=== PATIENT | male | born 1940 | race Caucasian/White ===

== ENCOUNTER → 2016-04-04 | Outpatient (CLI) | payer BC ==
[~2016-04-04] MED LIST: ASPEC81 PO; CRG3125 PO; CRSUNK PO; GLC500 PO; LISI1TAB3 PO; LRTUNK PO; MULT-506 PO; OXYC1TAB3 PO
[2016-04-04 10:55] LABS: BASO % 0.3 %; BASO ABS # 0.02 K/uL (0-0.2); COMPLETE YES; EOS % 2.5 %; HEMATOCRIT 37.3 % (42-52); IG% 0.4 %; LYMPH % 26.9 %; LYMPH ABS # 2.07 K/uL (1.2-3.4); MEAN CELL VOLUME 96.6 fL (80-100); MEAN CORPUSCULAR HEMOGLOBIN 32.6 pg (25-34); MEAN CORPUSCULAR HGB CONC 33.8 g/dl (32-36); MEAN PLATELET VOLUME 10.7 fL (7.4-10.4); MONO % 7.1 %; NEUT % 62.8 %; PLATELET COUNT 186 K/uL (130-400); RED BLOOD COUNT 3.86 M/uL (4.7-6.1)
[2016-04-04 11:17] LABS: BLOOD UREA NITROGEN 19 mg/dl (7-18); BUN/CREATININE RATIO 15.7 (10-20); C-REACTIVE PROTEIN 0.54 mg/dl (0-0.29); CALCIUM 9.2 mg/dl (8.5-10.1); CARBON DIOXIDE 22 mmol/L (21-32); CHLORIDE 108 mmol/L (98-107); GLUCOSE 125 mg/dl (70-99); POTASSIUM 4.5 mmol/L (3.5-5.1); SODIUM 141 mmol/L (136-145); URIC ACID 7.4 mg/dl (2.6-7.2)
== END | disposition home or self-care (01) ==
LOC: C.LAB 09:58
PROVIDERS: ATTEND Nurse Practitioner Family
DX: M79.89 Other specified soft tissue disorders (principal)

== ENCOUNTER → 2016-08-25 | Outpatient (CLI) | payer BC ==
[~2016-08-25] MED LIST changes: +ASPCH81X PO; +CARV3.122 PO; +METF1000 PO; +OXYC-164 PO; +SIMV10TA2 PO
[2016-08-25 09:33] LABS: BASO % 0.2 %; BASO ABS # 0.02 K/uL (0-0.2); COMPLETE YES; EOS % 2.2 %; HEMATOCRIT 40.3 % (42-52); IG% 0.5 %; LYMPH % 26.4 %; LYMPH ABS # 2.42 K/uL (1.2-3.4); MEAN CELL VOLUME 98.5 fL (80-100); MEAN CORPUSCULAR HGB CONC 34.5 g/dl (32-36); MEAN PLATELET VOLUME 10.7 fL (7.4-10.4); MONO % 8.1 %; NEUT % 62.6 %; PLATELET COUNT 173 K/uL (130-400); RED BLOOD COUNT 4.09 M/uL (4.7-6.1); WHITE BLOOD COUNT 9.17 K/uL (4.8-10.8)
[2016-08-25 09:54] LABS: ALT/SGPT 42 U/L (12-78); BLOOD UREA NITROGEN 17 mg/dl (7-18); BUN/CREATININE RATIO 15.8 (10-20); CALCIUM 9.6 mg/dl (8.5-10.1); CARBON DIOXIDE 25 mmol/L (21-32); CHLORIDE 110 mmol/L (98-107); CHOLESTEROL 172 mg/dl (0-200); GLUCOSE 124 mg/dl (70-99); POTASSIUM 4.4 mmol/L (3.5-5.1); SODIUM 142 mmol/L (136-145); TRIGLYCERIDES 87 mg/dl (0-150); VERY LOW DENSITY LIPOPROT CALC 17 mg/dl
[2016-08-25 09:58] LABS: ALB/GLOB RATIO 1.2 (0.9-2); ALKALINE PHOSPHATASE 60 U/L (45-117); AST/SGOT 23 U/L (15-37); CHOLESTEROL/HDL RATIO 2.6; HDL CHOLESTEROL 65 mg/dl; LDL CHOLESTEROL CALCULATED 90 mg/dl
[2016-08-25 10:07] LABS: ESTIMATED AVERAGE GLUCOSE 97 mg/dl; HA1C FLAG Normal (Normal)
== END | disposition home or self-care (01) ==
LOC: C.LAB 08:37
PROVIDERS: ATTEND Nurse Practitioner Family
DX: I10 Essential (primary) hypertension (principal); E78.00 Pure hypercholesterolemia, unspecified; R73.9 Hyperglycemia, unspecified

== ENCOUNTER → 2016-09-08 | Outpatient (CLI) | payer BC | END | disposition home or self-care (01) | LOC: C.PATHSPEC 11:10 | PROVIDERS: ATTEND Plastic Surgery | DX: C43.9 Malignant melanoma of skin, unspecified (principal) ==

== ENCOUNTER → 2017-02-03 | Day surgery (SDC) | payer BC ==
[2017-01-13 16:07] VITALS: Ht 157.5 cm; Wt 93.6 kg
[~2017-02-03] VITALS: Ht 157.5 cm; Wt 93.6 kg
[~2017-02-03] MED LIST changes: +500ML BSS 0.3ML EPI 1:1000PF IRRIG ONE; +ACETAMINOPHEN 325 MG TAB PO PRN; +AMVISC PLUS 0.8ML SYRINGE INT OCU ONE; -ASPEC81 PO; +ATROPINE SULFATE 0.1 MG/ML 5ML SYR IV PRN; +BSS FLUSH ONE; -CRG3125 PO; -CRSUNK PO; +EpHEDrine SULFATE INJ 50 MG/ML AMP IV PRN; +EpINEphrine INJ 1MG/ML AMP 1 MG/ML AMP ONE; -GLC500 PO; +LACTATED RINGER'S 1000ML 500 ML IV SCH; +LIDOCAINE 3.5% OPH GEL PER APPLICATION CHARGE ONE; +LIDOCAINE HCL 1% MPF 2 ML VIAL ONE; -LISI1TAB3 PO; -LRTUNK PO; +MIDAZOLAM HCL 1 MG/ML 2ML VIAL ONE; +OCUCOAT 1 ML SOLN IO ONE; -OXYC1TAB3 PO; +POVIDONE-IODINE OP SOLN 30 ML BTL ONE; +PROPARACAINE 0.5% OP SOLN PER DROP CHARGE OPL SCH; +TOBRAMYCIN/DEXAMETHASONE OPH OINT PER APPLN CHARGE ONE
[2017-02-03] MEDS: PHENYLEPHRINE HCL 2.5% OP SOLN PER DROP CHARGE OPL SCH ×2 (08:49→08:54)
[2017-02-03] MEDS: TROPICAMIDE 1% OP SOLN PER DROP CHARGE OPL SCH ×2 (08:50→08:55)
[2017-02-03] MEDS: CYCLOPENTOLATE HCL 1% OP SOLN PER DROP CHARGE OPL SCH ×2 (08:51→08:56)
[2017-02-03] MEDS: KETOROLAC 0.5% OP SOLN PER DROP CHARGE OPL SCH ×2 (08:52→08:57)
[2017-02-03] MEDS: GATIFLOXACIN OP SOLN PER DROP CHARGE OPL SCH ×2 (08:53→09:07)
--- NOTE | 2017-02-03 09:18 | History & Physical Bridge - SC ---
H&P Re-Evaluation Bridge Note: I have examined the patient, reviewed the History & Physical and in the interval since the performance of the History & Physical I have noted the following changes of clinical significance: No changes noted
--- NOTE | 2017-02-03 09:51 | Discharge Instructions-SurgCtr ---
Discharge Instructions Date of Service Feb 03, 2017. Visit Reason for Visit: Cataract Left Eye Discharge Discharge Diagnosis / Problem: cataract Discharge Goals Goal(s): Improve function Medications Stopped Medications Name(s): METFORMIN STOPPED 02-01-17 Activity Recommendations Activity Limitations: per Instructions/Follow-up section Anesthesia . Post Anesthesia Instructions: If you have had General Anesthesia or IV Sedation: * Do not drive today. * Resume driving when surgeon permits. * Do not make important decisions or sign legal documents today. * Call surgeon for: 1. Temperature elevations greater than 101 degrees F. 2. Uncontrollable pain. 3. Excessive bleeding. 4. Persistent nausea and vomiting. 5. Medication intolerance (nausea, vomiting or rash). * For nausea and vomiting use only clear liquids such as: tea, soda, bouillon until nausea subsides, then gradually increase diet as tolerated. * If you have any concerns or questions, call your surgeon's office. If physician is unavailable and it is an emergency, call 911 or go to the nearest emergency room. . Diet Recommendations Home Diet: resume previous diet Procedures Procedures Performed: Left Cataract Phacoemulsification With Intraocular Lens Implant Pending Studies Studies pending at discharge: no Medical Emergencies . Who to Call and When: Medical Emergencies: If at any time you feel your situation is an emergency, please call 911 immediately. . Non-Emergent Contact Non-Emergency issues call your: Farrowing Worker . . "Provider Documentation" section prepared by Oh Camargo. .
--- NOTE | 2017-02-03 09:52 | [facility] Operative Report ---
Operative Report Date of Service Feb 03, 2017. Operative Report 1. PREOPERATIVE DIAGNOSIS: Cataract of the left eye. 2. POSTOPERATIVE DIAGNOSIS: Same. 3. PROCEDURE: Phacoemulsification with intraocular lens implantation of the left eye. SURGEON: Dr. Oh Camargo. ANESTHESIA: Topical Lidocaine gel, 1% Non- Preserved intracameral Lidocaine, and monitored intravenous sedation. INDICATIONS FOR THE PROCEDURE: The patient is a 76 - year-old male with a history of cataract of the left eye causing significant visual impairment. The details of the proposed procedure were explained to the patient who asked appropriate questions and following discussion of all risks, benefits and alternatives agreed to have the procedure done. 4. OPERATION AND FINDINGS: DESCRIPTION OF PROCEDURE: After informed consent was obtained, the patient was brought to the Operating Room at the [facility]. The patient was placed in a supine position and then the left eye was prepped and draped in the usual sterile fashion for intraocular surgery. A drop of topical Lidocaine gel was placed in the operative eye. A wire lid speculum was then placed in the fornices. A corneal paracentesis was then created temporally. The Non-Preserved Lidocaine was then instilled into the anterior chamber. The anterior chamber was then pressurized with viscoelastic. A 2.0 mm clear corneal incision was then created temporally. A cystotome was inserted into the anterior chamber and used to create a tear in the anterior lens capsule. This capsular tear was then used to create a small flap and the flap was dragged in a counterclockwise direction in order to create a continuous curvilinear capsulorrhexis. Hydrodissection was accomplished with balanced salt solution. Phacoemulsification of the lens nucleus was then performed in a standard [id number] technique. The phaco time was 30 seconds with an average power of 15 %. The remaining cortical material was removed using irrigation aspiration. The capsular bag was then filled with viscoelastic. A B[employer]ch [employer] Lomb MI60L +23.0 diopters lens was then loaded into the injector and injected into the capsular bag. The remaining viscoelastic was removed with the irrigation aspiration handpiece. The wound was hydrated and then checked and found to be watertight. The intraocular pressure was checked and found to be adequate. The wire lid speculum was removed and the patient's face was cleaned and dried. TobraDex ointment was placed in the inferior fornix. The patient was discharged to the Recovery Room having tolerated the procedure well. There were no complications. The patient will be seen tomorrow in the office for follow-up. I attest to the content of the Intraoperative Record and any orders documented therein. Any exceptions are noted below.
[2017-02-03 09:56] VITALS: TEMP 36.8
[2017-02-03 10:12] VITALS: BP 162/84; PULSE 62; O2SAT 95
--- NOTE | 2017-02-03 10:15 | Anesthesiology Progress Note ---
Anesthesia Post Op Note Date & Time Feb 03, 2017 at 10:15 Vital Signs Vital Signs Past 12 Hours Date Time Temp Pulse Resp B/P (MAP) Pulse Ox O2 Delivery O2 Flow Rate FiO2 02/03/17 10:12 62 20 162/84 (110) 95 Room Air 02/03/17 09:56 36.8 68 20 155/76 (102) 94 Room Air 02/03/17 08:44 36.9 74 18 140/72 (94) 94 Room Air Notes Mental Status: alert / awake / arousable, participated in evaluation Nausea / Vomiting: adequately controlled Pain: adequately controlled Airway Patency, RR, SpO2: stable & adequate BP & HR: stable & adequate Hydration State: stable & adequate Anesthetic Complications: no major complications apparent
== END | disposition home or self-care (01) ==
LOC: X.SURG 08:00
PROVIDERS: ATTEND Ophthalmology
DX: H26.9 Unspecified cataract (principal); I10 Essential (primary) hypertension; E78.00 Pure hypercholesterolemia, unspecified; M10.9 Gout, unspecified; Z79.899 Other long term (current) drug therapy

== ENCOUNTER → 2017-03-18 | Outpatient (CLI) | payer BC ==
[~2017-03-18] MED LIST changes: -500ML BSS 0.3ML EPI 1:1000PF IRRIG ONE; -ACETAMINOPHEN 325 MG TAB PO PRN; -AMVISC PLUS 0.8ML SYRINGE INT OCU ONE; -ATROPINE SULFATE 0.1 MG/ML 5ML SYR IV PRN; -BSS FLUSH ONE; -EpHEDrine SULFATE INJ 50 MG/ML AMP IV PRN; -EpINEphrine INJ 1MG/ML AMP 1 MG/ML AMP ONE; -LACTATED RINGER'S 1000ML 500 ML IV SCH; -LIDOCAINE 3.5% OPH GEL PER APPLICATION CHARGE ONE; -LIDOCAINE HCL 1% MPF 2 ML VIAL ONE; -MIDAZOLAM HCL 1 MG/ML 2ML VIAL ONE; -OCUCOAT 1 ML SOLN IO ONE; -POVIDONE-IODINE OP SOLN 30 ML BTL ONE; -PROPARACAINE 0.5% OP SOLN PER DROP CHARGE OPL SCH; -TOBRAMYCIN/DEXAMETHASONE OPH OINT PER APPLN CHARGE ONE
[2017-03-18 12:28] LABS: BASO % 0.3 %; BASO ABS # 0.03 K/uL (0-0.2); EOS % 2.6 %; EOS ABS # 0.23 K/uL (0-0.5); HEMATOCRIT 41.4 % (42-52); HEMOGLOBIN 14.1 g/dL (14.0-18.0); IG# 0.05 K/uL (0.00-0.02); LYMPH % 30.1 %; MEAN CELL VOLUME 98.3 fL (80-100); MEAN CORPUSCULAR HEMOGLOBIN 33.5 pg (25-34); MEAN CORPUSCULAR HGB CONC 34.1 g/dl (32-36); MEAN PLATELET VOLUME 10.6 fL (7.4-10.4); MONO % 7.1 %; MONO ABS # 0.64 K/uL (0.11-0.59); NEUT % 59.3 %; NEUT ABS # 5.32 K/uL (1.4-6.5); PLATELET COUNT 186 K/uL (130-400); RED CELL DISTRIBUTION WIDTH CV 13.1 % (11.5-14.5); RED CELL DISTRIBUTION WIDTH SD 46.6 fL (36.4-46.3); WHITE BLOOD COUNT 8.97 K/uL (4.8-10.8)
[2017-03-18 12:53] LABS: HEMOGLOBIN A1C 4.9 % (4.5-5.6)
[2017-03-18 17:38] LABS: ALBUMIN 3.8 gm/dl (3.4-5.0); ALT/SGPT 36 U/L (12-78); AST/SGOT 18 U/L (15-37); BLOOD UREA NITROGEN 22 mg/dl (7-18); CALCIUM 9.5 mg/dl (8.5-10.1); CARBON DIOXIDE 27 mmol/L (21-32); CREATININE 1.38 mg/dl (0.60-1.40); GLUCOSE 116 mg/dl (70-99); SODIUM 141 mmol/L (136-145)
[2017-03-18 17:41] LABS: ALKALINE PHOSPHATASE 56 U/L (45-117); CHOLESTEROL 142 mg/dl (0-200); LDL CHOLESTEROL CALCULATED 62 mg/dl; TOTAL PROTEIN 7.2 gm/dl (6.4-8.2)
== END | disposition home or self-care (01) ==
LOC: C.LABBFT 11:14
PROVIDERS: ATTEND Nurse Practitioner Family
DX: I10 Essential (primary) hypertension (principal); E78.00 Pure hypercholesterolemia, unspecified; R79.89 Other specified abnormal findings of blood chemistry; R73.9 Hyperglycemia, unspecified

== ENCOUNTER 2021-09-09 10:13 | Observation (INO) ==
--- NOTE | 2021-09-09 10:41 | Emergency Department Note ---
Impression & Plan CIARAN (acute kidney injury), Anemia, Metabolic acidosis ED Provider Note NAME: THAIS SEPULVEDA JR AGE: 81 SEX: M : 1940 ARRIVES VIA: Walk-In INFORMANT: Patient ED PROVIDER(S): Angel Dorman DO CHIEF COMPLAINT: Abnormal blood work HPI: Patient is an 81-year-old male who presents to the ER referred in by his PCP as he had blood work several days ago. Patient notes that he had blood work for regular follow-up that is done every 6 months. He got a call today and was told to come in. He denies any headache or change in vision. No chest pain or shortness of breath. No nausea, vomiting, or diarrhea. No dysuria, urgency, or frequency. No other exacerbating or remitting factors. No weakness or numbness. No complaints at this time. ROS: See above HPI for pertinent positives & negatives. A total of 10 systems reviewed and were otherwise negative. PAST MEDICAL HISTORY:See Below PAST SURGICAL HISTORY:See Below FAMILY HISTORY:See Below SOCIAL HISTORY:See Below HOME MEDICATIONS:See Below ALLERGIES:See Below VITALS:See Below PHYSICAL EXAMINATION: GENERAL: Sitting up in bed, alert, well appearing, well nourished, no distress, non-toxic EYE EXAM: normal conjunctiva. OROPHARYNX: no exudate, no erythema, lips, buccal mucosa, and tongue normal and mucous membranes are moist NECK: supple, no nuchal rigidity, no adenopathy, non-tender LUNGS: Clear to auscultation. Normal chest wall mechanics HEART: no murmurs, S1 normal and S2 normal ABDOMEN: abdomen soft, non-tender, normo-active bowel sounds, no masses, no rebound or guarding. UPPER EXTREMITIES: upper extremities are grossly normal. LOWER EXTREMITIES: No pitting edema. NEURO EXAM: Normal sensorium, cranial nerves II-XII grossly intact, normal speech, no gross weakness of arms, no gross weakness of legs. MEDICAL DECISION MAKING: Patient is a an 81-year-old male who presents the ER referred in by PCP. IV was established blood was obtained. Labs show no significant leukocytosis. Mild anemia 10. BMP with creatinine 2.35. CO2 is 18. Creatinine trended up in the past 2 to 3 days from 2.12 through 2.3. Baseline appears to be 1.5. LFTs were unremarkable. UA was clean. Alcohol and COVID was negative. Patient was updated at bedside. Discussed with the hospitalist for further evaluation. Patient is no other complaints at this time. Triage Nursing notes reviewed. Limited review of prior medical records performed Vital Signs: reviewed and remarkable for no significant abnormalities Differential diagnosis: Infection, dehydration, metabolic abnormality, hypo/hyperglycemia, electrolyte disturbance, anemia, hypoxia, cardiac sources, intracerebral event, toxicologic, neurologic, as well as other pathologies. ER treatment provided: See below Diagnostics interpreted by me: Cardiac Monitoring: An order was placed for continuous cardiac monitoring. The monitor shows a rate of 62 with sinus rhythm. Laboratory studies: As stated above and show below. Imaging studies: See below Consultation(s): Discussed with hospitalist for further evaluation Dr. Marquis King Procedures: none Critical Care: None Past Med/Surg History Medical History Anemia pt unaware Chronic back pain Chronic obstructive pulmonary disease mild - well controlled with Breo Glaucoma Gout x1 episode, no problems since Hx of colonic polyp x1 Hypercholesteremia Hypertension Malignant melanoma Osteoarthritis Sleep apnea CPAP Type II diabetes mellitus NIDDM Surgical History History of cataract surgery bilateral History of colonoscopy History of tonsillectomy History of vitrectomy bilateral Hx of appendectomy Hx of hernia repair inguinal Hx of local excision of skin lesion Family History Mother Colorectal cancer Father Bone cancer Other No family history of adverse response to anesthesia Denies family history of Ovarian cancer Prostate cancer Myocardial infarction Breast cancer Lung cancer Stroke Social History Smoking Status: Former smoker Tobacco Type: Cigarettes Age Started Using Tobacco: 15; Age Quit Using Tobacco: 49; packs per day: 1; Years Smoked: 34; Cigarettes Per Day: 20; Number of Years Since Quit: 30; Second Hand Exposure: No; Hx Alcohol Use: Yes Alcohol type: wine Alcohol Intake Frequency Comment: 2 glasses per week Hx Substance Use: No Preferred Language: Scottish Communication Ability: Effective Visual Impairment: No Limitations Hearing Ability: Use of Hearing Aid Quality Nurse Required: No Beliefs That Will Affect Care: None marital status: Current Living Situation: Spouse current occupational status: retired Feels Safe at Home: Yes Childhood Exposure to Second-Hand Smoke: Yes caffeine: Yes Dental Care, Regularly: Yes Physical Activity Frequency: 1-2 Times per Week Physical Activity Frequency Comment: walking, 10 minutes Seatbelt Use: always Sunscreen Use: Yes Assistive Devices: CPAP, Glasses and Hearing Aid - Bilateral Allergies Allergies Allergy/AdvReac Type Severity Reaction Status Date / Time cilostazol Allergy Unknown UNKNOWN, Verified 09/04/21 11:13 TOLD NOT TO TAKE diltiazem Allergy Unknown Unknown Verified 09/04/21 11:13 fish oil Allergy Unknown UNKNOWN, Verified 09/04/21 11:13 TOLD NOT TAKE rosuvastatin Allergy Unknown SWELLING Verified 09/04/21 11:13 lisinopril Allergy pt unsure Verified 09/04/21 11:13 amlodipine AdvReac Intermediate pt unsure Verified 09/04/21 11:13 Home Meds Home Medications Medication Instructions Recorded Confirmed aspirin 81 mg tablet,delayed 81 mg PO QAM tab 12/31/18 09/09/21 release bimatoprost 0.01 % eye drops 1 drp OPHTHALMIC (EYE) QPM 02/28/20 09/09/21 (Jagruti) carvedilol 3.125 mg tablet 6.25 mg PO HS 02/28/20 09/09/21 dorzolamide 2 % eye drops 1 drp OPHTHALMIC (EYE) BID 02/28/20 09/09/21 furosemide 20 mg tablet 20 mg PO QAM 02/28/20 09/04/21 vitamin B complex 1 tab PO QAM 02/28/20 09/09/21 metformin 500 mg tablet 500 mg PO DAILY tab 04/25/21 09/09/21 Previous Rx's Medication Instructions Recorded CPAP Machine #1 ea 04/28/19 simvastatin 10 mg tablet 10 mg PO HS #90 tab 10/16/20 losartan 100 mg tablet 100 mg PO QAM #90 tab 11/21/20 blood sugar diagnostic (EnovexTouch #50 ea 03/14/21 Verio test strips) blood-glucose meter (OneTouch #1 ea 03/14/21 Verio Flex Start) lancets 33 gauge (OneTouch Delica #100 ea 03/14/21 Lancets) carvedilol 3.125 mg tablet 3.125 mg PO QAM #270 tab 04/16/21 oxycodone-acetaminophen 10 mg-325 1 - 2 tab PO Q4H PRN #60 tab 07/19/21 mg tablet fluticasone furoate 200 1 inh INHALATION QAM #60 ea 08/05/21 mcg-vilanterol 25 mcg/dose inhalation powder Results & Data (ED) Vital Signs Vital Signs - 24 hr 09/09/21 10:22 09/09/21 12:49 09/09/21 12:57 Temperature 36.5 C Temperature Source Skin Pulse Rate 72 70 70 Pulse Rate from SpO2 Sensor 70 Pulse Rhythm Regular Regular Pulse Strength Normal Respiratory Rate 20 19 Respiratory Effort / Characteristics Non-Labored Spontaneous Respiratory Depth Normal Respiratory Pattern Regular Blood Pressure 119/57 L Blood Pressure Mean 77 Pulse Oximetry 97 99 100 Oxygen Delivery Method Room Air Room Air Sepsis Recent Fever Within 48 Hours No Sepsis New/Unexplained Change in Mental Status N/A Sepsis Action Taken by Nursing No Action Required 09/09/21 13:00 09/09/21 13:10 Temperature Temperature Source Pulse Rate 73 71 Pulse Rate from SpO2 Sensor 72 80 Pulse Rhythm Pulse Strength Respiratory Rate 19 17 Respiratory Effort / Characteristics Respiratory Depth Respiratory Pattern Blood Pressure 167/74 H Blood Pressure Mean 105 Pulse Oximetry 98 99 Oxygen Delivery Method Sepsis Recent Fever Within 48 Hours Sepsis New/Unexplained Change in Mental Status Sepsis Action Taken by Nursing Laboratory Data Result diagrams: 09/09/21 10:43 09/09/21 10:43 Lab Results 09/09/21 09/09/21 09/09/21 Range/Units 10:43 10:43 12:37 WBC 7.53 (4.8-10.8) K/ul RBC 2.88 L (4.63-6.08) M/uL Hgb 10.0 L (14.0-18.0) g/dl Hct 29.9 L (40.1-51.0) % MCV 103.8 H (80.0-100.0) fL MCH 34.7 H (25.0-34.0) pg MCHC 33.4 (32.0-36.0) g/dL RDW Std Deviation 50.1 H (36.4-46.3) fL RDW Coeff of Jessenia 13.4 (11.5-14.5) % Plt Count 138 (130-400) K/uL MPV 11.2 (9.4-12.4) fL Immature Gran % (Auto) 0.4 % Neut % (Auto) 66.5 % Lymph % (Auto) 21.1 % Archer % (Auto) 9.6 % Eos % (Auto) 2.0 % Baso % (Auto) 0.4 % Neut # (Auto) 5.01 (1.4-6.5) K/uL Lymph # (Auto) 1.59 (1.2-3.4) K/uL Archer # (Auto) 0.72 (0.24-0.82) K/uL Eos # (Auto) 0.15 (0-0.50) K/uL Baso # (Auto) 0.03 (0-0.2) K/uL Immature Gran # (Auto) 0.03 H (0.00-0.02) K/uL Sodium 143 (136-145) mmol/L Potassium 4.8 (3.5-5.1) mmol/L Chloride 117 H (98-107) mmol/L Carbon Dioxide 18 L (21-32) mmol/L Anion Gap 8 (3-11) BUN 55 H (6-23) mg/dl Creatinine 2.35 H (0.6-1.4) mg/dl Est Cr Clr Drug Dosing 22.1 ml/min Est GFR ( Amer) 29.0 ml/min Est GFR (Non-Af Amer) 25.0 ml/min BUN/Creatinine Ratio 23.4 H (10-20) Glucose 102 H (70-99(Fasting)) mg/dl Calcium 9.6 (8.5-10.1) mg/dl Total Bilirubin 0.7 (0.2-1.0) mg/dl Direct Bilirubin 0.1 (0-0.2) mg/dl AST 13 (13-39) U/L ALT 13 (7-52) U/L Alkaline Phosphatase 49 (34-104) U/L Total Protein 6.6 (6.0-8.3) gm/dl Albumin 4.0 (3.4-5.0) gm/dl Urine Color Urine Appearance (Clear) Urine pH (4.5-7.5) Ur Specific Mission (1.000-1.030) Urine Protein (Negative) Urine Glucose (UA) (Negative) Urine Ketones (Negative) Urine Blood (Negative) Urine Nitrite (Negative) Urine Bilirubin (Negative) Urine Urobilinogen (Negative) Ur Leukocyte Esterase (Negative) Ethyl Alcohol mg/dL (<10.0) mg/dl SARS-CoV-2, RNA, NAAT (NEGATIVE) 09/09/21 09/09/21 09/09/21 Range/Units 12:37 12:45 12:45 WBC (4.8-10.8) K/ul RBC (4.63-6.08) M/uL Hgb (14.0-18.0) g/dl Hct (40.1-51.0) % MCV (80.0-100.0) fL MCH (25.0-34.0) pg MCHC (32.0-36.0) g/dL RDW Std Deviation (36.4-46.3) fL RDW Coeff of Jessenia (11.5-14.5) % Plt Count (130-400) K/uL MPV (9.4-12.4) fL Immature Gran % (Auto) % Neut % (Auto) % Lymph % (Auto) % Archer % (Auto) % Eos % (Auto) % Baso % (Auto) % Neut # (Auto) (1.4-6.5) K/uL Lymph # (Auto) (1.2-3.4) K/uL Archer # (Auto) (0.24-0.82) K/uL Eos # (Auto) (0-0.50) K/uL Baso # (Auto) (0-0.2) K/uL Immature Gran # (Auto) (0.00-0.02) K/uL Sodium (136-145) mmol/L Potassium (3.5-5.1) mmol/L Chloride (98-107) mmol/L Carbon Dioxide (21-32) mmol/L Anion Gap (3-11) BUN (6-23) mg/dl Creatinine (0.6-1.4) mg/dl Est Cr Clr Drug Dosing ml/min Est GFR ( Amer) ml/min Est GFR (Non-Af Amer) ml/min BUN/Creatinine Ratio (10-20) Glucose (70-99(Fasting)) mg/dl Calcium (8.5-10.1) mg/dl Total Bilirubin (0.2-1.0) mg/dl Direct Bilirubin (0-0.2) mg/dl AST (13-39) U/L ALT (7-52) U/L Alkaline Phosphatase (34-104) U/L Total Protein (6.0-8.3) gm/dl Albumin (3.4-5.0) gm/dl Urine Color Dark Yellow Urine Appearance Clear (Clear) Urine pH 6.0 (4.5-7.5) Ur Specific Mission 1.015 (1.000-1.030) Urine Protein Negative (Negative) Urine Glucose (UA) Negative (Negative) Urine Ketones Negative (Negative) Urine Blood Negative (Negative) Urine Nitrite Negative (Negative) Urine Bilirubin Negative (Negative) Urine Urobilinogen Negative (Negative) Ur Leukocyte Esterase Negative (Negative) Ethyl Alcohol mg/dL < 10.0 (<10.0) mg/dl SARS-CoV-2, RNA, NAAT NEGATIVE (NEGATIVE) Administered Medications Discontinued Medications Sodium Chloride (Nss 1000ml) 1,000 mls @ 999 mls/hr IV .Q1H1M ONE Stop: 09/09/21 12:57 Last Infusion: 09/09/21 14:24 Dose: 0 mls/hr Documented by: [id number] Admin: 09/09/21 12:45 Dose: 999 mls/hr Documented by: [id number] Imaging Data Radiologist's Impression: Renal Ultrasound 09/09/21 12:13 ULTRASOUND KIDNEYS AND BLADDER CLINICAL HISTORY: Acute renal insufficiency. COMPARISON STUDY: No priors. TECHNIQUE: Real-time, grayscale, and color flow sonography of the kidneys and bladder is performed. Images are reviewed in the transverse and longitudinal planes. FINDINGS: Kidneys: The kidneys demonstrate mild cortical atrophy. Echotexture is normal. The right kidney measures 10.9 cm in length and the left kidney measures 10.9 cm in length. There is no hydronephrosis. The 5 mm shadowing calculus is noted in the right lower pole. A subcentimeter cyst is noted on the left. There is no sonographic evidence of solid renal mass lesion. No perinephric fluid is identified. Bladder: The bladder is distended common and the wall appears thickened/trabeculated indicating chronic outlet obstruction. Bilateral ureteral jets were seen. IMPRESSION: 1. The kidneys demonstrate mild cortical atrophy and are without hydronephrosis. 2. Right-sided nephrolithiasis. 3. Prostatomegaly with evidence of chronic bladder outlet obstruction. ACT 112: Negative or not required by law. Electronically signed by: Sav Gomez M.D. 09/09/2021 3:30 PM Discharge Plan Visit Data Chief Complaint: Abnormal Labs/Diagnostic Testing Stated Complaint: ABNORMAL KIDNEY FUNCTION TESTING ED Provider: Angel Dorman Discharge Problem: CIARAN (acute kidney injury), Anemia, Metabolic acidosis Patient Disposition: Admitted As Inpatient Discharge Instructions Interventions: ED Discharge Assessment Last Done: 09/09/21 14:51 Discharge Problem: Anemia Qualifiers: Anemia type: unspecified type Qualified Code(s): D64.9 - Anemia, unspecified
[2021-09-09 11:21] LABS: Basophils # (auto) 0.03 K/uL (0-0.2); Basophils % (auto) 0.4 %; Eosinophils # (auto) 0.15 K/uL (0-0.50); Hematocrit (blood only) 29.9 % (40.1-51.0); Immature Granulocytes # (auto) 0.03 K/uL (0.00-0.02); Immature Granulocytes % (auto) 0.4 %; Lymphocytes # (auto) 1.59 K/uL (1.2-3.4); Lymphocytes % (auto) 21.1 %; Mean Corpuscular Hemoglobin 34.7 pg (25.0-34.0); Mean Corpuscular Hgb Conc 33.4 g/dL (32.0-36.0); Mean Corpuscular Volume 103.8 fL (80.0-100.0); Mean Platelet Volume 11.2 fL (9.4-12.4); Monocytes # (auto) 0.72 K/uL (0.24-0.82); Monocytes % (auto) 9.6 %; Neutrophils # (auto) 5.01 K/uL (1.4-6.5); Neutrophils % (auto) 66.5 %; Platelet Count 138 K/uL (130-400); RDW Coefficient of Variation 13.4 % (11.5-14.5); RDW Standard Deviation 50.1 fL (36.4-46.3); Red Blood Count 2.88 M/uL (4.63-6.08); White Blood Count 7.53 K/ul (4.8-10.8)
[2021-09-09 11:45] LABS: BUN Creatinine Ratio 23.4 (10-20); Calcium 9.6 mg/dl (8.5-10.1); Creatinine Clr Calc Pharmacy 22.1 ml/min; Potassium 4.8 mmol/L (3.5-5.1)
[2021-09-09] MEDS ORDERED: SODIUM CHLORIDE 0.9% 1000ML 1,000 ML IV ONE (11:57)
[2021-09-09 13:08] LABS: Appearance Urine Clear (Clear); Bilirubin Urine Negative (Negative); Blood Urine Negative (Negative); Color Urine Dark Yellow; Glucose Urine UA Negative (Negative); Ketones Urine Negative (Negative); Leukocyte Esterase Urine Negative (Negative); Nitrite Urine Negative (Negative); Protein Urine Negative (Negative); Specific Gravity Urine 1.015 (1.000-1.030); Urobilinogen Urine Negative (Negative)
[2021-09-09 13:11] LABS: Bilirubin Direct 0.1 mg/dl (0-0.2); Bilirubin,Total 0.7 mg/dl (0.2-1.0); Total Protein 6.6 gm/dl (6.0-8.3)
--- NOTE | 2021-09-09 13:35 | History & Physical Report ---
Date of Service September 09, 2021 Assessment & Plan (1) CIARAN (acute kidney injury): Plan: ANTONIO II on CKD. Increase in Serum LIFT OPERATOR to 2.35 from baseline of ~1.5 over 6 months from previous check. - This elevation is not associated with any protein or blood noted in UA - is without new medications started, no evidence of infection or shock, BP controlled, - remains urinating without reported LUTS- renal ultrasound with note of chronic outlet obstruction- start flomax bladder scan as needed - DDX: HTN vs. DM vs. HF vs intrinsic vs. other/volume - Electrolytes are stable at this time - appears euvolemic on exam - Obtain ECHO in morning evaluate for worsening of heart function leading to increase in renal indcies - Urine electrolytes pending - urCRT 88.7, urMICroalb- 25.2, ratio 28.4- 09/20 - HOLD ARB - HOLD Lasix - Nephrology consulted for evaluation and continued follow on (2) Obstructive sleep apnea of adult: Plan: Currently non-compliant secondary to Recall of device (3) Hypercholesteremia: Plan: Continue statin (4) Hypertension: Plan: Continue BB hold ARB and Diuretic as above (5) Type II diabetes mellitus: Plan: Hold metformin - aspart sliding scale CF 20 with carb ration 1:15 - HGB A1c 4.9 with last check 09/20 History of Present Illness Primary Care Provider: Quang Browning MD 81 YOM with medical history of: DMII, HLD, HTN< CKD IIIa, ABDIRIZAK, Obesity, Carotid artery disease with (CEA right, left occluded). Patient was referred to the EMD today by his PCP secondary to obtaining labs at routine follow up and noting increase in his BUN and LIFT OPERATOR as well as increase in his Potassium. The patient states that he has been compliant with his medications and has not had any change to his diet over the past 2 weeks. He denies any new medications being started or any new supplementation being started. He states that he has not noted any increase in his lower extremity edema, or worsening of dyspnea. He states he is urinated well without any change in output or stream or color. In the EMD the patient had routine labs performed to include UA. His BMP is notable for BUN of 55 and LIFT OPERATOR 2.35 His baseline LIFT OPERATOR has been 1.4-1.6. His potassium is 4.8 and his HCO3 is 18 which has been in his normal range for the past few years. He has not been wearing his CPAP secondary to recall. Patient will be observed overnight, will hold his ARB and Lasix. Renal ultrasound as well as renal electrolytes will be obtained. 2-D Cardiac ECHO will be obtained and continue workup. Nephrology will be consulted. COVID test on admission is: NEGATIVE Allergies Allergy/AdvReac Type Severity Reaction Status Date / Time cilostazol Allergy Unknown UNKNOWN, Verified 09/04/21 11:13 TOLD NOT TO TAKE diltiazem Allergy Unknown Unknown Verified 09/04/21 11:13 fish oil Allergy Unknown UNKNOWN, Verified 09/04/21 11:13 TOLD NOT TAKE rosuvastatin Allergy Unknown SWELLING Verified 09/04/21 11:13 lisinopril Allergy pt unsure Verified 09/04/21 11:13 amlodipine AdvReac Intermediate pt unsure Verified 09/04/21 11:13 Home Medications Medication Instructions Recorded Confirmed Type aspirin 81 mg tablet,delayed 81 mg PO QAM tab 12/31/18 09/09/21 History release CPAP Machine #1 ea 04/28/19 09/04/21 Rx bimatoprost 0.01 % eye drops 1 drp OPHTHALMIC (EYE) QPM 02/28/20 09/09/21 History ([place]fe[place]) carvedilol 3.125 mg tablet 6.25 mg PO HS 02/28/20 09/09/21 History dorzolamide 2 % eye drops 1 drp OPHTHALMIC (EYE) BID 02/28/20 09/09/21 History furosemide 20 mg tablet 20 mg PO QAM 02/28/20 09/04/21 History vitamin B complex 1 tab PO QAM 02/28/20 09/09/21 History simvastatin 10 mg tablet 10 mg PO HS #90 tab 10/16/20 09/09/21 Rx losartan 100 mg tablet 100 mg PO QAM #90 tab 11/21/20 09/09/21 Rx blood sugar diagnostic (VoAPPsTouch #50 ea 03/14/21 09/04/21 Rx Verio test strips) blood-glucose meter (VoAPPsTouch #1 ea 03/14/21 09/04/21 Rx Verio Flex Start) lancets 33 gauge (OneTouch Delica #100 ea 03/14/21 09/04/21 Rx Lancets) carvedilol 3.125 mg tablet 3.125 mg PO QAM #270 tab 04/16/21 09/09/21 Rx metformin 500 mg tablet 500 mg PO DAILY tab 04/25/21 09/09/21 History oxycodone-acetaminophen 10 mg-325 1 - 2 tab PO Q4H PRN #60 tab 07/19/21 09/09/21 Rx mg tablet fluticasone furoate 200 1 inh INHALATION QAM #60 ea 08/05/21 09/09/21 Rx mcg-vilanterol 25 mcg/dose inhalation powder Past Med/Surg History Medical History Anemia pt unaware Chronic back pain Chronic obstructive pulmonary disease mild - well controlled with Breo Glaucoma Gout x1 episode, no problems since Hx of colonic polyp x1 Hypercholesteremia Hypertension Malignant melanoma Osteoarthritis Sleep apnea CPAP Type II diabetes mellitus NIDDM Surgical History History of cataract surgery bilateral History of colonoscopy History of tonsillectomy History of vitrectomy bilateral Hx of appendectomy Hx of hernia repair inguinal Hx of local excision of skin lesion Family History Mother Colorectal cancer Father Bone cancer Other No family history of adverse response to anesthesia Denies family history of Ovarian cancer Prostate cancer Myocardial infarction Breast cancer Lung cancer Stroke Social History Smoking Status: Former smoker Tobacco Type: Cigarettes Age Started Using Tobacco: 15; Age Quit Using Tobacco: 49; packs per day: 1; Years Smoked: 34; Cigarettes Per Day: 20; Number of Years Since Quit: 30; Second Hand Exposure: No; Hx Alcohol Use: Yes Alcohol type: wine Alcohol Intake Frequency Comment: 2 glasses per week Hx Substance Use: No Preferred Language: Ukrainian Communication Ability: Effective Visual Impairment: No Limitations Hearing Ability: Use of Hearing Aid Wood Getter Required: No Beliefs That Will Affect Care: None marital status: Current Living Situation: Spouse current occupational status: retired Feels Safe at Home: Yes Childhood Exposure to Second-Hand Smoke: Yes caffeine: Yes Dental Care, Regularly: Yes Physical Activity Frequency: 1-2 Times per Week Physical Activity Frequency Comment: walking, 10 minutes Seatbelt Use: always Sunscreen Use: Yes Assistive Devices: CPAP, Glasses and Hearing Aid - Bilateral Review of Systems Review of Systems: REVIEW OF SYSTEMS: Constitutional: No fever, sweats or chills Eyes: No diplopia, no worsening or blurred vision ENT: normal hearing, no trouble swallowing Respiratory: No cough, sputum, dyspnea at rest or on exertion Cardiovascular: (+) edema to legs by end of the day, No chest pain, tightness or palpitations Abdomen: No pain, nausea, vomiting, diarrhea or constipation Musculoskeletal: (+) chronic back pain, No joint pain, calf pain, swelling Neurologic: No weakness, numbness/tingling, or balance problems Psychiatric: No anxiety or depression Skin: No rash or itch Physical Exam Physical Exam: PHYSICAL EXAM: General: awake, alert, no apparent distress Head: Normocephalic, atraumatic ENT: PERRL, EOMI, no pharyngeal exudate, mucous membranes moist Neuro: AAO x 3, speech clear and appropriate, strength intact bilaterally 5/5, sensation intact and equal all extremities and dermatomes, no pronator drift Chest: equal rise and fall of the chest, no accessory muscle use, no heaves or thrills, Clear to auscultation, on room air, Cardiac: Regular rate and rhythm, telemetry reviewed, skin warm dry, cap refill <3 seconds, peripheral pulses +2 no JVD, no murmur, no edema GI: NABS x 4 quadrants, soft, nontender to palpation, no rebound, guarding or tenderness : Spontaneously voiding, no pain, no CVA tenderness, Extremities: Normal inspection, no peripheral edema or erythema, calfs nontender to palpation Psych: Normal mood and affect Skin: right CEA scar Results & Data Results & Data ([facility]) Vital Signs (Past 12 Hours) Vital Signs Temp Pulse Resp BP Pulse Ox 09/09/21 12:49 70 99 09/09/21 10:22 36.5 C 72 20 119/57 L 97 Laboratory Results Abnormal lab results 09/09/21 09/09/21 Range/Units 10:43 10:43 RBC 2.88 L (4.63-6.08) M/uL Hgb 10.0 L (14.0-18.0) g/dl Hct 29.9 L (40.1-51.0) % MCV 103.8 H (80.0-100.0) fL MCH 34.7 H (25.0-34.0) pg RDW Std Deviation 50.1 H (36.4-46.3) fL Immature Gran # (Auto) 0.03 H (0.00-0.02) K/uL Chloride 117 H (98-107) mmol/L Carbon Dioxide 18 L (21-32) mmol/L BUN 55 H (6-23) mg/dl Creatinine 2.35 H (0.6-1.4) mg/dl BUN/Creatinine Ratio 23.4 H (10-20) Glucose 102 H (70-99(Fasting)) mg/dl Diagnostic Findings Renal Ultrasound 09/09/21 12:13 ULTRASOUND KIDNEYS AND BLADDER CLINICAL HISTORY: Acute renal insufficiency. COMPARISON STUDY: No priors. TECHNIQUE: Real-time, grayscale, and color flow sonography of the kidneys and bladder is performed. Images are reviewed in the transverse and longitudinal planes. FINDINGS: Kidneys: The kidneys demonstrate mild cortical atrophy. Echotexture is normal. The right kidney measures 10.9 cm in length and the left kidney measures 10.9 cm in length. There is no hydronephrosis. The 5 mm shadowing calculus is noted in the right lower pole. A subcentimeter cyst is noted on the left. There is no sonographic evidence of solid renal mass lesion. No perinephric fluid is identified. Bladder: The bladder is distended common and the wall appears thickened/trabeculated indicating chronic outlet obstruction. Bilateral ureteral jets were seen. IMPRESSION: 1. The kidneys demonstrate mild cortical atrophy and are without hydronephrosis. 2. Right-sided nephrolithiasis. 3. Prostatomegaly with evidence of chronic bladder outlet obstruction. ACT 112: Negative or not required by law. Electronically signed by: Sav Gomez M.D. 09/09/2021 3:30 PM Medications Administered Home Medications aspirin 81 mg tablet,delayed release 81 mg PO QAM tab 12/31/18 [History Confirmed 09/04/21] CPAP Machine #1 ea 04/28/19 [Rx Confirmed 09/04/21] peg 3350-electrolytes 236 gram-22.74 gram-6.74 gram-5.86 gram solution (Golytely) 240 ml PO .COMPLEX #4000 ml 02/22/20 [Rx Confirmed 09/04/21] bimatoprost 0.01 % eye drops (Lumigan) 1 drp OPHTHALMIC (EYE) QPM 02/28/20 [History Confirmed 09/04/21] carvedilol 3.125 mg tablet 6.25 mg PO HS 02/28/20 [History Confirmed 09/04/21] dorzolamide 2 % eye drops 1 drp OPHTHALMIC (EYE) BID 02/28/20 [History Confirmed 09/04/21] furosemide 20 mg tablet 20 mg PO QAM 02/28/20 [History Confirmed 09/04/21] vitamin B complex 1 tab PO QAM 02/28/20 [History Confirmed 09/04/21] simvastatin 10 mg tablet 10 mg PO HS #90 tab 10/16/20 [Rx Confirmed 09/04/21] losartan 100 mg tablet 100 mg PO QAM #90 tab 11/21/20 [Rx Confirmed 09/04/21] blood sugar diagnostic (VoAPPsTouch Verio test strips) #50 ea 03/14/21 [Rx Confirmed 09/04/21] blood-glucose meter (VoAPPsTouch Verio Flex Start) #1 ea 03/14/21 [Rx Confirmed 09/04/21] lancets 33 gauge (OneTouch Delica Lancets) #100 ea 03/14/21 [Rx Confirmed 09/04/21] carvedilol 3.125 mg tablet 3.125 mg PO QAM #270 tab 04/16/21 [Rx Confirmed 09/04/21] metformin 500 mg tablet 500 mg PO DAILY tab 04/25/21 [History Confirmed 09/04/21] oxycodone-acetaminophen 10 mg-325 mg tablet 1 - 2 tab PO Q4H PRN #60 tab 07/19/21 [Rx Confirmed 09/04/21] fluticasone furoate 200 mcg-vilanterol 25 mcg/dose inhalation powder 1 inh INHALATION QAM #60 ea 08/05/21 [Rx Confirmed 09/04/21] Discontinued Medications Sodium Chloride (Nss 1000ml) 1,000 mls @ 999 mls/hr IV .Q1H1M ONE Stop: 09/09/21 12:57 Last Admin: 09/09/21 12:45 Dose: 999 mls/hr Documented by: [id number] ECG Additional Comments: Pending on admission Code Status & VTE Plan Code Status CODE: FULL VTE: SCDS, Heparin 5000 units sub q BID VTE Prophylaxis Plan VTE Prophylaxis will be ordered: Yes Supervising Physician Co-Signing Physician Notes I personally saw and examined the patient. I verified all pisano points and agree with LINH Hendricks with the following exceptions and/or additions: 81 year old male admission for worsening renal function on advice of his PCP. Baseline Cr last year 1.51. No proteinuria. Patient urinating normally. No myles ge in medications despite worsening creatinine as outpatient. O/E HS1+2, no murmurs, RRR, Chest CTAB, Abdo SNT, no CVA tenderness. decreased skin turgor. A/P CKD vs. CIARAN - hold olmesartan and furosemide. Unclear if this is just his new baseline. Appears mildly hypovolemic on exam. I am not clear he needs diuretics chronically as no history of pulmonary edema. Despite chronica outlet obstruction on renal US he reports nocturia 3 times a night but no other BPH symptoms. Agree with tamsulosin 0.4mg PO daily as this may be contributory towards worsening Cr. PG Care Time/CCT Total # of Minutes Spent Total Time Spent with Patient: Total time spent is greater than 50% in coordination of care (as documented) at patient's floor/unit and/or counseling patient: Coding Level of Care Code INT OBSERVATION CARE 70M LVL 3 Diagnoses CIARAN (acute kidney injury) N17.9 Obstructive sleep apnea of adult G47.33 Hypercholesteremia E78.00 Hypertension I10 Type II diabetes mellitus E11.9
--- NOTE | 2021-09-09 14:41 | Electrocardiogram Report ---
Test Reason : Blood Pressure : / mmHG Vent. Rate : 081 BPM Atrial Rate : 081 BPM P-R Int : 148 ms QRS Dur : 136 ms QT Int : 420 ms P-R-T Axes : 023 -20 079 degrees QTc Int : 487 ms Normal sinus rhythm Left bundle branch block Abnormal ECG No previous ECGs available Confirmed by Quang Bridges ([id number]) on 09/09/2021 2:40:56 PM Referred By: REFERRED SELF Confirmed By:Tanmay Bridges
--- NOTE | 2021-09-09 15:32 | Ultrasound Report ---
ULTRASOUND KIDNEYS AND BLADDER CLINICAL HISTORY: Acute renal insufficiency. COMPARISON STUDY: No priors. TECHNIQUE: Real-time, grayscale, and color flow sonography of the kidneys and bladder is performed. I mages are reviewed in the transverse and longitudinal planes. FINDINGS: Kidneys: The kidneys demonstrate mild cortical atrophy. Echotexture is normal. The right kidney measu res 10.9 cm in length and the left kidney measures 10.9 cm in length. There is no hydronephrosis. Th e 5 mm shadowing calculus is noted in the right lower pole. A subcentimeter cyst is noted on the left . There is no sonographic evidence of solid renal mass lesion. No perinephric fluid is identified. Bladder: The bladder is distended common and the wall appears thickened/trabeculated indicating chron ic outlet obstruction. Bilateral ureteral jets were seen. IMPRESSION: 1. The kidneys demonstrate mild cortical atrophy and are without hydronephrosis. 2. Right-sided nephrolithiasis. 3. Prostatomegaly with evidence of chronic bladder outlet obstruction. ACT 112: Negative or not required by law. Electronically signed by: Sav Gomez M.D. 09/09/2021 3:30 PM
[2021-09-09] MEDS ORDERED: GLUCAGON FOR INJ 1 MG VIAL SQ PRN (15:35)
[2021-09-09] MEDS ORDERED: CARBOHYDRATES FOR HYPOGLYCEMIA PO PRN (15:35)
[2021-09-09] MEDS ORDERED: GLUCOSE 40% GEL 15 GM TUBE PO PRN (15:35)
[2021-09-09] MEDS ORDERED: ACETAMINOPHEN 325 MG TAB PO PRN (15:35)
[2021-09-09] MEDS ORDERED: DEXTROSE 50% 50 ML SYRINGE IV PRN (15:35)
[2021-09-09] MEDS ORDERED: oxyCODONE/ACETAMINOPHEN 10-325 TAB PO PRN (15:35)
[2021-09-09] MEDS ORDERED: GLUCOSE 10 TAB/TUBE PO PRN (15:35)
[2021-09-09] MEDS ORDERED: TAMSULOSIN HCL 0.4 MG CAP PO ONE (16:07)
[2021-09-09] MEDS: INSULIN ASPART PER UNIT SC SCH ×2 (17:05→21:18)
[2021-09-09 19:36] LABS: Urine Potassium 46.8 mmol/L
[2021-09-09] MEDS: SIMVASTATIN 10 MG TAB PO SCH (20:25)
[2021-09-09] MEDS: carvediloL 6.25 MG TAB PO SCH (20:25)
[2021-09-10 07:55] LABS: Basophils # (auto) 0.02 K/uL (0-0.2); Basophils % (auto) 0.3 %; Eosinophils # (auto) 0.13 K/uL (0-0.50); Eosinophils % (auto) 2.1 %; Hematocrit (blood only) 27.7 % (40.1-51.0); Hemoglobin 9.3 g/dl (14.0-18.0); Immature Granulocytes # (auto) 0.03 K/uL (0.00-0.02); Immature Granulocytes % (auto) 0.5 %; Lymphocytes # (auto) 1.35 K/uL (1.2-3.4); Lymphocytes % (auto) 21.3 %; Mean Corpuscular Hemoglobin 34.8 pg (25.0-34.0); Mean Corpuscular Hgb Conc 33.6 g/dL (32.0-36.0); Mean Corpuscular Volume 103.7 fL (80.0-100.0); Mean Platelet Volume 11.5 fL (9.4-12.4); Monocytes % (auto) 7.9 %; Neutrophils % (auto) 67.9 %; Platelet Count 119 K/uL (130-400); RDW Coefficient of Variation 13.3 % (11.5-14.5); RDW Standard Deviation 49.4 fL (36.4-46.3); Red Blood Count 2.67 M/uL (4.63-6.08); White Blood Count 6.33 K/ul (4.8-10.8)
[2021-09-10] MEDS: ASPIRIN 81 MG ECTAB PO SCH (08:05)
[2021-09-10] MEDS: TAMSULOSIN HCL 0.4 MG CAP PO SCH (08:05)
[2021-09-10] MEDS: carvediloL 3.125 MG TAB PO SCH (08:05)
[2021-09-10] MEDS: FLUTICASONE/VILANTEROL 200/25MCG 14 PUFFS/INHALER INH SCH (08:06)
[2021-09-10] MEDS: HEPARIN SOD 5,000 UNIT/0.5 ML VIAL SQ SCH ×2 (08:06→21:17)
[2021-09-10] MEDS: INSULIN ASPART PER UNIT SC SCH ×4 (08:07→21:17)
[2021-09-10 08:44] LABS: BUN Creatinine Ratio 26.4 (10-20); Calcium 8.8 mg/dl (8.5-10.1); Creatinine Clr Calc Pharmacy 28.2 ml/min; Est GFR (African American) 39.5 ml/min; Est GFR (Non-African American) 34.1 ml/min; Magnesium 1.5 mg/dl (1.7-2.4); Potassium 4.9 mmol/L (3.5-5.1)
--- NOTE | 2021-09-10 09:23 | Nephrology Consultation ---
Date of Consultation September 10, 2021 Assessment & Plan (1) CIARAN (acute kidney injury): * Nonoliguric CIARAN due to dehydration in the setting of ARB therapy * Urinalysis is negative for blood or protein * Hold ARB therapy. Blood pressure is currnently well controlled * Renal US is negative for hydronephrosis but does show ZULUAGA * Will provide 1L 0.9NS and order repeat PRP this afternoon. If creatinine improves to near baseline, patient can be discharged off Losartan to follow up as outpatient w/ PCP (2) Chronic kidney disease, stage III (moderate): * CKD stage G3b/A1 (moderate impairment). His baseline Cr has been 1.4 - 1.6 w/ EGFR 40 cc/min. Urinalysis has been acellular. UPCR <0.1. His renal impairment is due to microvascular disease (3) Hypertension: * On Carvedilol and Losartan as outpatient * Now has clinical dehydration and relative hypotension * Stop Losartan due to CIARAN and absence of urinary protein * Will provide IV hydration (4) BPH (benign prostatic hyperplasia): * Agree w/ starting Tamsulosin (5) Type II diabetes mellitus: * Resume Metformin 500 mg daily once Cr near baseline 1.4 - 1.6 History of Present Illness Reason for Consultation: CIARAN/CKD Attending Physician: Andrew Holder MD History of Present Illness Mr. Vital is an 81 year old white male who is seen at the request of the [facility] Hospitalist Service for evaluation of CIARAN/CKD. Medical records in the EMR were reviewed today and are summarized as follows: Mr. Vital has CKD stage G3b/A1 (moderate impairment). His baseline Cr has been 1.4 - 1.6 w/ EGFR 40 cc/min. Urinalysis has been acellular. UPCR <0.1. His renal impairment is due to microvascular disease. Mr. Vital's medical history is significant for AODM, HTN, ABDIRIZAK, COPD and hypercholesterolemia. He reports that recently he has been eating only once daily and his hydration has been poor. Mr. Vital's has dementia and he has been caring for her but not himself. He denies fever, N/V /D, or difficulty voiding. He denies any recent ill contacts and has not been using NSAIDS or herbal supplements. His last hospitalization was > 6 months ago Allergies Allergy/AdvReac Type Severity Reaction Status Date / Time cilostazol Allergy Unknown UNKNOWN, Verified 09/04/21 11:13 TOLD NOT TO TAKE diltiazem Allergy Unknown Unknown Verified 09/04/21 11:13 fish oil Allergy Unknown UNKNOWN, Verified 09/04/21 11:13 TOLD NOT TAKE rosuvastatin Allergy Unknown SWELLING Verified 09/04/21 11:13 lisinopril Allergy pt unsure Verified 09/04/21 11:13 amlodipine AdvReac Intermediate pt unsure Verified 09/04/21 11:13 Home Medications Medication Instructions Recorded Confirmed Type aspirin 81 mg tablet,delayed 81 mg PO QAM tab 12/31/18 09/09/21 History release CPAP Machine #1 ea 04/28/19 09/04/21 Rx bimatoprost 0.01 % eye drops 1 drp OPHTHALMIC (EYE) QPM 02/28/20 09/09/21 History (Jagruti) carvedilol 3.125 mg tablet 6.25 mg PO HS 02/28/20 09/09/21 History dorzolamide 2 % eye drops 1 drp OPHTHALMIC (EYE) BID 02/28/20 09/09/21 History furosemide 20 mg tablet 20 mg PO QAM 02/28/20 09/04/21 History vitamin B complex 1 tab PO QAM 02/28/20 09/09/21 History simvastatin 10 mg tablet 10 mg PO HS #90 tab 10/16/20 09/09/21 Rx losartan 100 mg tablet 100 mg PO QAM #90 tab 11/21/20 09/09/21 Rx blood sugar diagnostic (OneTouch #50 ea 03/14/21 09/04/21 Rx Verio test strips) blood-glucose meter (OneTouch #1 ea 03/14/21 09/04/21 Rx Verio Flex Start) lancets 33 gauge (OneTouch Delica #100 ea 03/14/21 09/04/21 Rx Lancets) carvedilol 3.125 mg tablet 3.125 mg PO QAM #270 tab 04/16/21 09/09/21 Rx metformin 500 mg tablet 500 mg PO DAILY tab 04/25/21 09/09/21 History oxycodone-acetaminophen 10 mg-325 1 - 2 tab PO Q4H PRN #60 tab 07/19/21 09/09/21 Rx mg tablet fluticasone furoate 200 1 inh INHALATION QAM #60 ea 08/05/21 09/09/21 Rx mcg-vilanterol 25 mcg/dose inhalation powder Patient History Medical History (Reviewed 09/10/21 @ : by Dung Flood MD) Anemia pt unaware Chronic back pain Chronic obstructive pulmonary disease mild - well controlled with Breo Glaucoma Gout x1 episode, no problems since Hx of colonic polyp x1 Hypercholesteremia Hypertension Malignant melanoma Osteoarthritis Sleep apnea CPAP Type II diabetes mellitus NIDDM Surgical History (Reviewed 09/10/21 @ : by Dung Flood MD) History of cataract surgery bilateral History of colonoscopy History of tonsillectomy History of vitrectomy bilateral Hx of appendectomy Hx of hernia repair inguinal Hx of local excision of skin lesion Family History (Reviewed 09/10/21 @ by Dung Flood MD) Mother Colorectal cancer Father Bone cancer Other No family history of adverse response to anesthesia Denies family history of Ovarian cancer Prostate cancer Myocardial infarction Breast cancer Lung cancer Stroke Social History (Reviewed 09/10/21 @ : by Dung Flood MD) Smoking Status: Former smoker Tobacco Type: Cigarettes Age Started Using Tobacco: 15; Age Quit Using Tobacco: 49; packs per day: 1; Years Smoked: 34; Cigarettes Per Day: 20; Number of Years Since Quit: 30; Second Hand Exposure: No; Hx Alcohol Use: Yes Alcohol type: wine Alcohol Intake Frequency Comment: 2 glasses per week Hx Substance Use: No Preferred Language: Mongolian Communication Ability: Effective Visual Impairment: No Limitations Hearing Ability: Use of Hearing Aid Director Of Medical Education Required: No Beliefs That Will Affect Care: None marital status: Current Living Situation: Spouse current occupational status: retired Feels Safe at Home: Yes Childhood Exposure to Second-Hand Smoke: Yes caffeine: Yes Dental Care, Regularly: Yes Physical Activity Frequency: 1-2 Times per Week Physical Activity Frequency Comment: walking, 10 minutes Seatbelt Use: always Sunscreen Use: Yes Assistive Devices: CPAP, Glasses and Hearing Aid - Bilateral Review of Systems Constitutional: no fever Eyes: no problem reported Ear, Nose, Mouth, Throat: no problem reported Respiratory: no cough and no dyspnea Cardiovascular: no chest pain, no palpitations and no edema Gastrointestinal: no abdominal pain, no nausea, no vomiting and no diarrhea/loose stools Genitourinary: no dysuria, no urinary hesitancy or no hematuria Musculoskeletal: no back pain Integumentary: no rash Neurologic: no falls, no dizziness and no confusion Physical Exam Constitutional: not in distress Eyes: PERRL, conjunctivae normal, anicteric sclerae ENMT: Mouth: + dry oral mucous membranes Neck: trachea midline, no thyromegaly Respiratory: normal respiratory effort, lungs clear to auscultation Cardiovascular: RRR, no murmur, no edema Gastrointestinal (Abdomen): normal bowel sounds, soft, nontender, no hepatosplenomegaly Musculoskeletal: no cyanosis or clubbing, extremities motor strength 5/5 Skin: + turgor decreased Neurologic: awake; not confused Results & Data ([facility]) Vital Signs (Past 12 Hours) Vital Signs Temp Pulse Pulse Resp BP Pulse Ox 09/10/21 08:19 36.7 C 66 18 122/62 96 09/10/21 04:00 36.7 C 67 20 120/61 98 09/10/21 01:07 75 09/09/21 23:39 36.8 C 74 20 134/70 97 Laboratory Results Laboratory Tests 02/06/20 03/26/20 09/09/21 15:35 13:03 10:43 WBC Hgb Hct Plt Count Sodium Potassium Chloride Carbon Dioxide BUN Creatinine 1.44 H 1.62 H 2.35 H Calcium Magnesium Urine Color Urine Appearance Urine pH Ur Specific [place] Urine Protein Urine Glucose (UA) Urine Blood Urine Nitrite Ur Leukocyte Esterase Urine Sodium 09/09/21 09/09/21 09/10/21 12:45 12:45 06:58 WBC 6.33 Hgb 9.3 L Hct 27.7 L Plt Count 119 L Sodium Potassium Chloride Carbon Dioxide BUN Creatinine Calcium Magnesium Urine Color Dark Yellow Urine Appearance Clear Urine pH 6.0 Ur Specific [place] 1.015 Urine Protein Negative Urine Glucose (UA) Negative Urine Blood Negative Urine Nitrite Negative Ur Leukocyte Esterase Negative Urine Sodium 81 09/10/21 06:58 WBC Hgb Hct Plt Count Sodium 140 Potassium 4.9 Chloride 120 H Carbon Dioxide 14 L BUN 48 H Creatinine 1.82 H D Calcium 8.8 Magnesium 1.5 L Urine Color Urine Appearance Urine pH Ur Specific [place] Urine Protein Urine Glucose (UA) Urine Blood Urine Nitrite Ur Leukocyte Esterase Urine Sodium Diagnostic Findings 09/09/21 US: Kidneys: The kidneys demonstrate mild cortical atrophy. Echotexture is normal. The right kidney measures 10.9 cm in length and the left kidney measures 10.9 cm in length. There is no hydronephrosis. The 5 mm shadowing calculus is noted in the right lower pole. A subcentimeter cyst is noted on the left. There is no sonographic evidence of solid renal mass lesion. No perinephric fluid is identified. Bladder: The bladder is distended common and the wall appears thickened/trabeculated indicating chronic outlet obstruction. Bilateral ureteral jets were seen. 09/09/21 CXR: Mild cardiomegaly. Otherwise negative study. PG Care Time/CCT Total # of Minutes Spent Total Time Spent with Patient: Total time spent is greater than 50% in coordination of care (as documented) at patient's floor/unit and/or counseling patient: Coding Level of Care Code 26707 Inpt Consult Level 5 Diagnoses CIARAN (acute kidney injury) N17.9 Chronic kidney disease, stage III (moderate) N18.30 Hypertension I10 BPH (benign prostatic hyperplasia) N40.0 Type II diabetes mellitus E11.9
[2021-09-10] MEDS ORDERED: SODIUM CHLORIDE 0.9% 1000ML 1,000 ML IV SCH (10:15)
--- NOTE | 2021-09-10 11:57 | XCELERA ---
[id number]
[2021-09-10] MEDS ORDERED: MAGNESIUM OXIDE 400 MG TAB PO ONE (12:05)
[2021-09-10 16:38] LABS: BUN Creatinine Ratio 22.9 (10-20); Calcium 8.6 mg/dl (8.5-10.1); Creatinine Clr Calc Pharmacy 25.5 ml/min; Est GFR (Non-African American) 30.2 ml/min; Potassium 4.6 mmol/L (3.5-5.1)
--- NOTE | 2021-09-10 17:17 | Hospitalist Progress Note ---
Date of Service September 10, 2021 Assessment & Plan (1) CIARAN (acute kidney injury): Plan: ANTONIO II on CKD. 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 EF 50- 55% Renal ultrasound: Evidence of chronic outlet obstruction, patient reports no symptoms of LUTS. Prostatomegaly. Continue Flomax Bladder scan every shift Lasix/ARB held Nephrology consulted. Nonoliguric UTI in the setting of ARB therapy. Unfortunately afternoon BMP with uptrending creatinine back to 2.01, -Bladder scan every shift and for PVR, encouraged orals overnight, recheck BMP in a.m. No NSAIDs (2) Obstructive sleep apnea of adult: Plan: Currently non-compliant secondary to Recall of device (3) Hypercholesteremia: Plan: Continue statin (4) Hypertension: Plan: Continue BB hold ARB and Diuretic as above (5) Type II diabetes mellitus: Plan: Hold metformin - aspart sliding scale CF 20 with carb ration 1:15 - HGB A1c 4.9 with last check 09/20 Admission and Anticipated Discharge Date Admission Date: September 09, 2021 Subjective Seen at the bedside. Is hopeful to go home, reports he feels he has no symptoms. No chest pain, chest pressure, shortness of breath, difficulty breathing, dysuria, oliguria, lightheadedness, dizziness. Very hard of hearing. Denies any recent medication changes, NSAID use. Review of Systems Review of Systems: All systems reviewed & are unremarkable except as noted in Subjective Physical Exam Physical Exam: General: A&Ox3. NAD. Cooperative. HEENT: Atraumatic, normocephalic. MM tacky. Pulm: CTAB A&P. -wheezes, -rales, -rhonchi. Symmetrical chest rise. No increase in work of breathing. No respiratory distress. Cardiac: RRR, -mrg. Radial pulses intact and symmetrical. Abdominal: Nontender, nondistended, soft. BS present. Results & Data Results & Data ([facility]) Vital Signs (Past 12 Hours) Vital Signs Temp Pulse Pulse Resp BP Pulse Ox 09/10/21 15:19 36.5 C 62 18 150/64 H 98 09/10/21 11:17 36.4 C L 68 18 117/51 L 97 09/10/21 08:19 36.7 C 66 18 122/62 96 09/10/21 07:00 62 PG Care Time/CCT Total # of Minutes Spent Total Time Spent with Patient: Total time spent is greater than 50% in coordination of care (as documented) at patient's floor/unit and/or counseling patient: Coding Level of Care Code 03702 Subseq Obs Care Lvl 2 Diagnoses CIARAN (acute kidney injury) N17.9 Obstructive sleep apnea of adult G47.33 Hypercholesteremia E78.00 Hypertension I10 Type II diabetes mellitus E11.9
[2021-09-10] MEDS: SIMVASTATIN 10 MG TAB PO SCH (21:16)
[2021-09-10] MEDS: carvediloL 6.25 MG TAB PO SCH (21:17)
[2021-09-11 06:38] LABS: Basophils # (auto) 0.02 K/uL (0-0.2); Basophils % (auto) 0.3 %; Eosinophils # (auto) 0.11 K/uL (0-0.50); Eosinophils % (auto) 1.7 %; Hematocrit (blood only) 26.8 % (40.1-51.0); Hemoglobin 8.9 g/dl (14.0-18.0); Immature Granulocytes # (auto) 0.03 K/uL (0.00-0.02); Immature Granulocytes % (auto) 0.5 %; Lymphocytes # (auto) 1.31 K/uL (1.2-3.4); Lymphocytes % (auto) 20.8 %; Mean Corpuscular Hemoglobin 33.5 pg (25.0-34.0); Mean Corpuscular Hgb Conc 33.2 g/dL (32.0-36.0); Mean Corpuscular Volume 100.8 fL (80.0-100.0); Mean Platelet Volume 10.7 fL (9.4-12.4); Monocytes # (auto) 0.55 K/uL (0.24-0.82); Monocytes % (auto) 8.7 %; Neutrophils # (auto) 4.27 K/uL (1.4-6.5); Platelet Count 122 K/uL (130-400); RDW Coefficient of Variation 13.1 % (11.5-14.5); Red Blood Count 2.66 M/uL (4.63-6.08); White Blood Count 6.29 K/ul (4.8-10.8)
[2021-09-11 06:59] LABS: BUN Creatinine Ratio 25.3 (10-20); Calcium 8.5 mg/dl (8.5-10.1); Creatinine Clr Calc Pharmacy 27.6 ml/min; Est GFR (African American) 38.5 ml/min; Est GFR (Non-African American) 33.2 ml/min; Magnesium 1.4 mg/dl (1.7-2.4); Potassium 4.6 mmol/L (3.5-5.1)
--- NOTE | 2021-09-11 08:22 | Nephrology Progress Note ---
Date of Service September 11, 2021 Assessment & Plan (1) CIARAN (acute kidney injury): Plan: * Nonoliguric CIARAN due to dehydration in the setting of ARB therapy * Urinalysis is negative for blood or protein * Hold ARB therapy. Will start low dose Amlodipine for BP management * Renal US revealed ZULUAGA. Agree w/ starting Tamsulosin. Will need Urology evaluation following discharge from the hospital * Baseline Cr now appears to be 1.6 - 2.0 * If discharge is anticipated, please have patient follow up in my office in 2 weeks for ongoing monitoring [phone] (2) Chronic kidney disease, stage III (moderate): Plan: * CKD stage G3b/A1 (moderate impairment). His baseline Cr has risne to 1.6 - 2.0 w/ EGFR 33 cc/min. Urinalysis has been acellular. UPCR <0.1. Renal impairment is due to microvascular disease (3) Hypertension: Plan: * On Carvedilol * Losartan held due to CIARAN * Start low dose Amlodipine for BP management * Tamsulosin added due to ZULUAGA (4) BPH (benign prostatic hyperplasia): Plan: * Agree w/ starting Tamsulosin (5) Type II diabetes mellitus: Plan: * Resume Metformin 500 mg daily once Cr near baseline 1.6 Admission and Anticipated Discharge Date Admission Date: September 09, 2021 Subjective Mr. Vital was evaluated in his hospital room this morning. He denies flank pain but notes that his PVR was elevated and he is now on alpha jeff therapy Review of Systems Constitutional: no fever Eyes: no problem reported Ear, Nose, Mouth, Throat: no problem reported Respiratory: no cough and no dyspnea Cardiovascular: no chest pain, no palpitations and no edema Gastrointestinal: no abdominal pain, no nausea, no vomiting and no diarr hea/loose stools Genitourinary: no dysuria, no urinary hesitancy or no hematuria Musculoskeletal: no back pain Integumentary: no rash Neurologic: no falls, no dizziness and no confusion Physical Exam Constitutional: not in distress Eyes: PERRL, conjunctivae normal, anicteric sclerae ENMT: Mouth: + dry oral mucous membranes Neck: trachea midline, no thyromegaly Respiratory: normal respiratory effort, lungs clear to auscultation Cardiovascular: RRR, no murmur, no edema Gastrointestinal (Abdomen): normal bowel sounds, soft, nontender, no hepatosplenomegaly Musculoskeletal: Extremities: no cyanosis Neurologic: awake; not confused Results & Data ([facility]) Vital Signs (Past 12 Hours) Vital Signs Temp Pulse Pulse Pulse Resp BP Pulse Ox 09/11/21 07:45 36.5 C 72 18 166/70 H 99 09/11/21 07:50 66 09/11/21 04:00 36.8 C 75 18 145/63 H 96 09/11/21 00:00 75 09/10/21 23:00 37.1 C 74 18 167/73 H 96 O2 Del Method 09/11/21 07:45 Room Air 09/11/21 07:50 09/11/21 04:00 Room Air 09/11/21 00:00 09/10/21 23:00 Room Air Laboratory Results Laboratory Tests 09/11/21 09/11/21 06:21 06:21 WBC 6.29 Hgb 8.9 L Hct 26.8 L Plt Count 122 L Sodium 138 Potassium 4.6 Chloride 119 H Carbon Dioxide 15 L BUN 47 H Creatinine 1.86 H Glucose 109 H Magnesium 1.4 L PG Care Time/CCT Total # of Minutes Spent Total Time Spent with Patient: Total time spent is greater than 50% in coordination of care (as documented) at patient's floor/unit and/or counseling patient: Coding Level of Care Code 27161 Subseq Hosp Care Lvl 3 Diagnoses CIARAN (acute kidney injury) N17.9 Chronic kidney disease, stage III (moderate) N18.30 Hypertension I10 BPH (benign prostatic hyperplasia) N40.0 Type II diabetes mellitus E11.9
[2021-09-11] MEDS: MAGNESIUM SULFATE / D5W 1 GM/100 ML BAG IV SCH ×2 (08:52→10:56)
[2021-09-11] MEDS ORDERED: FINASTERIDE 5 MG TAB PO SCH (09:00)
[2021-09-11] MEDS: TAMSULOSIN HCL 0.4 MG CAP PO SCH (09:46)
[2021-09-11] MEDS: FLUTICASONE/VILANTEROL 200/25MCG 14 PUFFS/INHALER INH SCH (09:46)
[2021-09-11] MEDS: carvediloL 3.125 MG TAB PO SCH (09:46)
[2021-09-11] MEDS: HEPARIN SOD 5,000 UNIT/0.5 ML VIAL SQ SCH (09:46)
[2021-09-11] MEDS: ASPIRIN 81 MG ECTAB PO SCH (09:46)
[2021-09-11] MEDS: INSULIN ASPART PER UNIT SC SCH ×2 (09:47→12:45)
[2021-09-11] MEDS ORDERED: amLODIPine BESYLATE 5 MG TAB PO SCH (11:00)
--- NOTE | 2021-09-11 18:07 | Discharge Summary ---
Date of Service September 11, 2021 Admission HPI Per Admitting Provider 81 YOM with medical history of: DMII, HLD, HTN< CKD IIIa, ABDIRIZAK, Obesity, Carotid artery disease with (CEA right, left occluded). Patient was referred to the EMD today by his PCP secondary to obtaining labs at routine follow up and noting increase in his BUN and CONSULTANT DIETITIAN as well as increase in his Potassium. The patient states that he has been compliant with his medications and has not had any change to his diet over the past 2 weeks. He denies any new medications being started or any new supplementation being started. He states that he has not noted any increase in his lower extremity edema, or worsening of dyspnea. He states he is urinated well without any change in output or stream or color. In the EMD the patient had routine labs performed to include UA. His BMP is notable for BUN of 55 and CONSULTANT DIETITIAN 2.35 His baseline CONSULTANT DIETITIAN has been 1.4-1.6. His potassium is 4.8 and his HCO3 is 18 which has been in his normal range for the past few years. He has not been wearing his CPAP secondary to recall. Patient will be observed overnight, will hold his ARB and Lasix. Renal ultrasound as well as renal electrolytes will be obtained. 2-D Cardiac ECHO will be obtained and continue workup. Nephrology will be consulted. COVID test on admission is: NEGATIVE Principal Diagnosis obstructive uropathy acute kidney injury resolved Discharge Exam The patient appeared stable Vital signs as documented. Extremities are nonedematous and both pedal pulses are normal. Neurologic exam is alert and oriented, no focal loss of strength or sensation Skin is without bruises or rashes Psychologically is without concerns for anxiety or depression. Discharge Data Allergies Allergy/AdvReac Type Severity Reaction Status Date / Time cilostazol Allergy Unknown UNKNOWN, Verified 09/04/21 11:13 TOLD NOT TO TAKE diltiazem Allergy Unknown Unknown Verified 09/04/21 11:13 fish oil Allergy Unknown UNKNOWN, Verified 09/04/21 11:13 TOLD NOT TAKE rosuvastatin Allergy Unknown SWELLING Verified 09/04/21 11:13 lisinopril Allergy pt unsure Verified 09/04/21 11:13 amlodipine AdvReac Intermediate pt unsure Verified 09/04/21 11:13 Consultations 09/09/21 12:22 ED Decision to Admit Stat 09/09/21 15:35 Consult Nephrology Routine Ordered Studies 09/09/21 12:13 US renal/blad retro comp Urgent Hospital Course (1) CIARAN (acute kidney injury): CIARAN on CKD 3. Renal ultrasound: Evidence of chronic outlet obstruction, patient reports no symptoms of LUTS. Prostatomegaly. has chronic hypospadias, Continue Flomax, since pt feels has good stream will not start proscare but recommend follow up [facility] urology Nephrology consulted. Nonoliguric UTI in the setting of ARB therapy Holding Lasix and losartan at time of discharge. (2) Obstructive sleep apnea of adult: Currently non-compliant secondary to Recall of device (3) Hypercholesteremia: Continue statin (4) Hypertension: Continue BB hold ARB and Diuretic at time of discharge (5) Type II diabetes mellitus: Low A1c request patient discuss his metformin with his primary care provider patient denies symptoms of hypoglycemia - aspart sliding scale CF 20 with carb ration 1:15 - HGB A1c 4.9 with last check 09/20 Total Time Total Time Spent Total Time Spent (In Minutes): It required greater than 30 minutes to prepare this patient for discharge Discharge Plan Discharge Items Patient Disposition: Home - Self-Care Reason For Visit: CKD WITH CIARAN Discharge Diagnosis: kidney distress due to bladder outlet obstruction low magnesium Activity: Resume your previous activity Non-emergency contact: Primary Care Provider and Urologist Call non-emergency contact if: your symptoms worsen Follow-up/Referrals: Quang Browning MD [Primary Care Provider] - 09/16/21 2:00 pm Cameron Chery MD [Physician] - Diet: Regular Addtl Attending Provider Instructions: You were admitted with distress to your kidney function due to difficulty emptying your bladder, most likley from an enlarged prostate You were started on 2 medicines to try to help your bladder empty Proscar(finasteride) Flomax(tamsulosin) It will be helpful to establish a relationship with a Urologist to monitor your progress. If you feel you are not emptying your bladder enough, by having to go to urinate frequently, please contact your primary care or if in distress return to the ER Pending Studies at Discharge: No Stand-Alone Forms: My [employer], Smoking Cessation Medications and DC Order Prescriptions: New tamsulosin 0.4 mg Capsule 0.4 mg PO QAM Qty: 30 4RF Continued simvastatin 10 mg tablet 10 mg PO HS Qty: 90 3RF carvedilol 3.125 mg tablet 3.125 mg PO QAM Qty: 270 3RF Rx Instructions: 3.125 mg PO TAKE 1 TABLET IN THE MORNING AND 2 AT NIGHT; must administer with a meal/food oxycodone-acetaminophen 10-325 mg tablet 1 - 2 tab PO Q4H PRN (Reason: pain) Qty: 60 0RF fluticasone furoate-vilanterol 200-25 mcg/dose blister with device 1 inh inhalation QAM Qty: 60 2RF aspirin 81 mg tablet,delayed release (DR/EC) 81 mg PO QAM (DME) CPAP Machine Misc See Rx Instructions .ROUTE .MEDSUPPLY Qty: 1 0RF Rx Instructions: PLEASE INCREASE THE HUMIDITY TO LEVEL 5. CARE PLUS O2 metformin 500 mg tablet 500 mg PO DAILY (DME) OneTouch Verio test strips Strip See Rx Instructions .Route Qty: 50 5RF Rx Instructions: As directed (DME) blood-glucose meter [OneTouch Verio Flex Start] Kit See Rx Instructions .Route Qty: 1 0RF Rx Instructions: As directed (DME) lancets [OneTouch Delica Lancets] 33 gauge misc See Rx Instructions .Route Qty: 100 5RF Rx Instructions: As directed carvedilol 3.125 mg Tablet 6.25 mg PO HS vitamin B complex Tablet 1 tab PO QAM dorzolamide 2 % Drops 1 drp OPHTHALMIC (EYE) BID Lumigan 0.01 % Drops 1 drp OPHTHALMIC (EYE) QPM Discontinued losartan 100 mg tablet 100 mg PO QAM Qty: 90 3RF furosemide 20 mg Tablet 20 mg PO QAM Discharge Orders: Discharge Order (Routine); Ordered 09/11/21 Ordered By: Mark Damon Admission Data Admit Date/Time: 09/09/21 13:17 Attending Provider: Mark Damon Admit Provider: Marquis King Primary Care Provider: Quang Browning Other Providers: Marquis King ; Dung Flood Other Interventions: Discharge Summary Assessment (RN) Last Done: 09/11/21 11:14 Coding Level of Care Code D/C DAY MANAGEMENT >30 MINS Diagnoses CIARAN (acute kidney injury) N17.9 Obstructive sleep apnea of adult G47.33 Hypercholesteremia E78.00 Hypertension I10 Type II diabetes mellitus E11.9
== END 2021-09-11 13:20 | disposition home or self-care (01) ==
LOC: 2N 10:13 → ED 10:13 → SUATTDRO 13:17 → 2N 14:51